=== PATIENT | male | born 1960 | race Caucasian/White ===

== ENCOUNTER 2020-08-20 09:53 | Emergency (ER) | payer OTHER ==
--- NOTE | 2020-08-20 10:31 | ER ---
Nurse's Notes [facility] Name: Bi King Age: 60 yrs Sex: Male : 1960 Arrival Date: 08/20/2020 Time: 09:55 Bed 13 Private MD: Diagnosis: Foreign body in left ear Presentation: 08/20 10:05 Chief complaint: Patient states: left ear felt clogged then started having a lot of iw pain for 3 weeks, went to PCP and had abx prescribed , no improvement. Coronavirus screen: At this time, the client does not indicate any symptoms associated with coronavirus-19. Ebola Screen: Patient negative for fever greater than or equal to 101.5 degrees Fahrenheit, and additional compatible Ebola Virus Disease symptoms Patient denies exposure to infectious person. Patient denies travel to an Ebola-affected area in the 21 days before illness onset. No symptoms or risks identified at this time. Initial Sepsis Screen: Does the patient meet any 2 criteria? No. Patient's initial sepsis screen is negative. Does the patient have a suspected source of infection? No. Patient's initial sepsis screen is negative. Risk Assessment: Do you want to hurt yourself or someone else? Patient reports no desire to harm self or others. Onset of symptoms was August 07, 2020. 10:05 Method Of Arrival: Ambulatory iw 10:05 Acuity: TANJA 4 iw Historical: - Allergies: 10:07 No Known Allergies; iw - Home Meds: 10:07 None [Active]; iw - PMHx: 10:07 None; iw - PSHx: 10:07 None; iw - Immunization history:: Adult Immunizations up to date. - Social history:: Smoking status: Patient denies any tobacco usage or history of. Screenin:12 Abuse screen: Denies threats or abuse. Denies injuries from another. Nutritional iw screening: No deficits noted. Tuberculosis screening: No symptoms or risk factors identified. Fall Risk None identified. Assessment: 10:12 General: Appears in no apparent distress. Behavior is calm, cooperative. Pain: iw Complains of pain in left ear. Neuro: Level of Consciousness is awake, alert, obeys commands, Oriented to person, place, time, situation, Moves all extremities. Full function. Cardiovascular: Patient's skin is warm and dry. Respiratory: Respiratory effort is even, unlabored, Respiratory pattern is regular, symmetrical. EENT: Reports pain in left ear. Derm: Skin is intact, is healthy with good turgor. Vital Signs: 10:05 BP 118 / 77; Pulse 52; Resp 16; Temp 98.7; Pulse Ox 98% on R/A; Weight 99.79 kg; Height iw 5 ft. 8 in. (172.72 cm); Pain 5/10; 10:05 Body Mass Index 33.45 (99.79 kg, 172.72 cm) iw ED Course: 09:55 Patient arrived in ED. ag5 10:07 Triage completed. iw 10:07 Arm band placed on. iw 10:08 Coreen Gonzalez, TAMIKA is Primary Nurse. iw 10:09 Allan Do PA is PHCP. jr8 10:09 Parag Isaac MD is Attending Physician. jr8 10:31 Monserrat Ceballos MD is Referral Physician. jr8 Administered Medications: No medications were administered Outcome: :31 Discharge ordered by . jr8 10:36 Patient left the ED. iw Signatures: Coreen Gonzalez, TAMIKA RN iw Allan Do PA PA jr8 Orly Baugh ag5
--- NOTE | 2020-08-20 10:32 | EDPHYS ---
Physician Documentation [facility] Name: Bi King Age: 60 yrs Sex: Male : 1960 Arrival Date: 08/20/2020 Time: 09:55 Bed 13 Private MD: ED Physician Parag Isaac HPI: 08/20 10:26 This 60 yrs old Male presents to ER via Ambulatory with complaints of Ear jr8 Pain. 10:26 The patient presents with pain, that is acute. The complaints affect the left ear. jr8 Onset: The symptoms/episode began/occurred acutely. Modifying factors: The symptoms are alleviated by nothing, the symptoms are aggravated by nothing. Associated signs and symptoms: The patient has no apparent associated signs or symptoms. Severity of symptoms: At their worst the symptoms were moderate in the emergency department the symptoms are unchanged. The patient has not experienced similar symptoms in the past. The patient has not recently seen a physician. Patient stated that he has left ear pain that is not subsiding. Had been on Abx for it not long ago . Historical: - Allergies: 10: No Known Allergies; iw - Home Meds: : None [Active]; iw - PMHx: 10: None; iw - PSHx: 10: None; iw - Immunization history:: Adult Immunizations up to date. - Social history:: Smoking status: Patient denies any tobacco usage or history of. ROS: 10:26 Eyes: Negative for injury, pain, redness, and discharge, Neck: Negative for injury, jr8 pain, and swelling, Cardiovascular: Negative for chest pain, palpitations, and edema, Respiratory: Negative for shortness of breath, cough, wheezing, and pleuritic chest pain, Abdomen/GI: Negative for abdominal pain, nausea, vomiting, diarrhea, and constipation, Back: Negative for injury and pain, MS/Extremity: Negative for injury and deformity, Skin: Negative for injury, rash, and discoloration, Neuro: Negative for headache, weakness, numbness, tingling, and seizure. 10:26 ENT: Positive for ear pain. Exam: 10:26 Constitutional: This is a well developed, well nourished patient who is awake, alert, jr8 and in no acute distress. Eyes: Pupils equal round and reactive to light, extra-ocular motions intact. Lids and lashes normal. Conjunctiva and sclera are non-icteric and not injected. Cornea within normal limits. Periorbital areas with no swelling, redness, or edema. Neck: Trachea midline, no thyromegaly or masses palpated, and no cervical lymphadenopathy. Supple, full range of motion without nuchal rigidity, or vertebral point tenderness. No Meningismus. Cardiovascular: Regular rate and rhythm with a normal S1 and S2. No gallops, murmurs, or rubs. Normal PMI, no JVD. No pulse deficits. Respiratory: Lungs have equal breath sounds bilaterally, clear to auscultation and percussion. No rales, rhonchi or wheezes noted. No increased work of breathing, no retractions or nasal flaring. Skin: Warm, dry with normal turgor. Normal color with no rashes, no lesions, and no evidence of cellulitis. MS/ Extremity: Pulses equal, no cyanosis. Neurovascular intact. Full, normal range of motion. Neuro: Awake and alert, GCS 15, oriented to person, place, time, and situation. Cranial nerves II-XII grossly intact. Motor strength 5/5 in all extremities. Sensory grossly intact. Cerebellar exam normal. Normal gait. 10:26 ENT: Exam is negative for nasal discharge, sinus tenderness, enlarged tonsils, pharyngitis, exudate, External ear(s): are unremarkable, Ear canal(s): foreign body, eraser , in the left external ear canal, TM's: not visable, because of a foreign body, Examination of the other ear shows no obvious abnormality. Vital Signs: 10:05 BP 118 / 77; Pulse 52; Resp 16; Temp 98.7; Pulse Ox 98% on R/A; Weight 99.79 kg; Height iw 5 ft. 8 in. (172.72 cm); Pain 5/10; 10:05 Body Mass Index 33.45 (99.79 kg, 172.72 cm) iw Procedures: 10:26 Foreign Body Removal: eraser , from the left ear canal, by using a curette, The patient jr8 tolerated the removal well. MDM: 10:10 Patient medically screened. jr8 10:26 Data reviewed: vital signs, nurses notes, and as a result, I will discharge patient. jr8 Data interpreted: Pulse oximetry: on room air is 98 %. Interpretation: normal. Counseling: I had a detailed discussion with the patient and/or guardian regarding: the historical points, exam findings, and any diagnostic results supporting the discharge/admit diagnosis, the need for outpatient follow up, an ENT specialist, to return to the emergency department if symptoms worsen or persist or if there are any questions or concerns that arise at home. Administered Medications: No medications were administered Disposition: 13:38 Co-signature as Attending Physician, Parag Isaac MD. rn Disposition: 08/20/20 10:31 Discharged to Home. Impression: Foreign body in left ear. - Condition is Stable. - Discharge Instructions: Ear Foreign Body. - Medication Reconciliation Form, Thank You Letter, Antibiotic Education, Prescription Opioid Use form. - Follow up: Monserrat Ceballos MD; When: As needed; Reason: Recheck today's complaints, Continuance of care, Re-evaluation by your physician. - Problem is new. - Symptoms have improved. Signatures: Coreen Gonzalez RN RN iw Parag Isaac MD MD rn Roszak, Josh, PA PA jr8 Corrections: (The following items were deleted from the chart) 10:36 10:31 08/20/2020 10:31 Discharged to Home. Impression: Foreign body in left ear. iw Condition is Stable. Forms are Medication Reconciliation Form, Thank You Letter, Antibiotic Education, Prescription Opioid Use. Follow up: Monserrat Ceballos; When: As needed; Reason: Recheck today's complaints, Continuance of care, Re-evaluation by your physician. Problem is new. Symptoms have improved. jr8
[2020-08-20 10:45] VITALS: BP 118/77; TEMP 98.7; O2SAT 98
== END 2020-08-20 10:36 | disposition home or self-care (01) ==
LOC: ER 09:53
PROC: 09C4XZZ Extirpation of Matter from Left External Auditory Canal, External Approach (ICD-10-PCS; principal; 2020-08-20)
DX: T16.2XXA Foreign body in left ear, initial encounter (principal)
CPT/HCPCS: 99281

== ENCOUNTER 2025-08-10 16:45 | Emergency (ER) | payer BC, OTHER ==
[2025-08-10] MEDS ORDERED: MORPHINE 4 MG/ML SYR ONE (16:59)
[2025-08-10] MEDS ORDERED: ONDANSETRON 4 MG/2 ML VIAL ONE (16:59)
--- NOTE | 2025-08-10 18:21 | RAD REPORT ---
EXAM: CT brain without contrast HISTORY: Pain;Trauma COMPARISON: 06/01/2013 TECHNIQUE: Multiple contiguous axial images were obtained and a CT of the brain without contrast. Sag ittal and coronal reformats were performed. FINDINGS: No evidence of hydrocephalus, intracranial hemorrhage, or extra-axial fluid collection. The brain is normal in morphology. The calvarium is intact. The visualized paranasal sinuses and mastoid air cells are essentially clear . IMPRESSION: No evidence of acute intracranial abnormality. EXAM: CT of the cervical spine without contrast HISTORY: Pain;Trauma COMPARISON: None TECHNIQUE: Multiple contiguous axial images were obtained in a CT of the cervical spine without contr ast. Sagittal and coronal reformats were performed. FINDINGS: The vertebral bodies demonstrate normal height and alignment. No evidence of acute fracture or subluxation.. Mild degenerative changes are present. No prevertebral soft tissue swelling is seen. The posterior facets are well aligned. Normal alignment of the skull base with the cervical spine is seen. The lung apices are unremarkable. IMPRESSION: No evidence of acute osseous abnormality of the cervical spine.
--- NOTE | 2025-08-10 18:23 | RAD REPORT ---
EXAM: Thoracic Spine W/o Cont HISTORY: [facility] MAIN Pain;Trauma Bed Name: 5 COMPARISON: None TECHNIQUE: Multiple contiguous axial images were obtained in a CT of the thoracic spine without contr ast. Sagittal and coronal reformats were performed. One or more of the following dose reduction techniques were used: Automated exposure control, adjustment of the mA and kV according to patient si ze, and iterative reconstruction. Unless otherwise specified, incidental findings do not require dedicated imaging follow-up. FINDINGS: The vertebral bodies and intervertebral discs demonstrate normal height and alignment witho ut fracture or subluxation. . No significant degenerative changes are present. The prevertebral and paraspinal soft tissues are unremarkable. The included portions of the lungs and mediastinum are unremarkable. IMPRESSION: No evidence of acute osseous abnormality of the thoracic spine.
--- NOTE | 2025-08-10 18:27 | EDPHYS ---
Physician Documentation [facility] Name: Bi King Age: 65 yrs Sex: Male : 1960 Arrival Date: 08/10/2025 Time: 16:45 Bed 5 Private MD: ED Physician Hernando Foy HPI: 08/10 17:21 This 65 yrs old Male presents to ER via EMS with complaints of Fall Injury. dr5 17:21 Details of fall: The patient fell from a height, from a ladder, approximately [address]5 Details of fall: The patient fell. Details of fall: The patient fell from a height, from a ladder, approximately 3 feet. Onset: The symptoms/episode began/occurred acutely. Patient is a 65-year-old male with no past medical history, not on blood thinners, coming in with fall off of a ladder approximately 3 feet. Patient reports that he fell off the back of it hitting the back of his head and then hitting the middle of his lower back. Patient denies loss of consciousness, dizziness, nausea, vomiting. Patient reports pain is worse in middle of back. Patient denies bowel, bladder incontinence, perirectal numbness, bilateral lower leg numbness or tingling. Patient was administered 2000 mg of Tylenol IV prior to arrival by EMS.. Historical: - Allergies: 17:15 No Known Allergies; kj2 - Home Meds: 17:22 None [Active]; dr5 - PMHx: 17:22 None; dr5 - Immunization history: Last tetanus immunization: unknown. - Infectious Disease History:: Denies. - Social history:: Smoking status: unknown. ROS: 17:22 Constitutional: as per hpi dr5 Exam: 17:22 Constitutional: This is a well developed, well nourished patient who is awake, alert, dr5 and in no acute distress. Head/Face: Normocephalic, atraumatic. Eyes: Pupils equal round and reactive to light, extra-ocular motions intact. Lids and lashes normal. Conjunctiva and sclera are non-icteric and not injected. Cornea within normal limits. Periorbital areas with no swelling, redness, or edema. ENT: Nares patent. No nasal discharge, no septal abnormalities noted. Tympanic membranes are normal and external auditory canals are clear. Oropharynx with no redness, swelling, or masses, exudates, or evidence of obstruction, uvula midline. Mucous membranes moist. Neck: Trachea midline, no thyromegaly or masses palpated, and no cervical lymphadenopathy. Supple, full range of motion without nuchal rigidity, or vertebral point tenderness. No Meningismus. Chest/axilla: Normal chest wall appearance and motion. Nontender with no deformity. No lesions are appreciated. Cardiovascular: Regular rate and rhythm with a normal S1 and S2. Normal PMI, no JVD. No pulse deficits. Respiratory: Lungs have equal breath sounds bilaterally, clear to auscultation. No rales, rhonchi or wheezes noted. No increased work of breathing, no retractions or nasal flaring. Abdomen/GI: Soft, non-tender, non-distended Back: No spinal tenderness. No costovertebral tenderness. Full range of motion. Skin: Warm, dry with normal turgor. Normal color with no rashes, no lesions, and no evidence of cellulitis. Contusion noted to mid of back of head with small abrasion. No active bleeding at this time. MS/ Extremity: Pulses equal, no cyanosis. Neurovascular intact. Full, normal range of motion. Neuro: Awake and alert, GCS 15, oriented to person, place, time, and situation. Cranial nerves II-XII grossly intact. Motor strength 5/5 in all extremities. Sensory grossly intact. Cerebellar exam normal. Normal gait. Vital Signs: 16:56 BP 157 / 92; Pulse 57; Resp 20; Temp 97.8; Pulse Ox 95% on R/A; Weight 110.22 kg; kj2 Height 5 ft. 8 in. ; 18:05 BP 120 / 80; Pulse 58; Resp 20; Temp 97.9(O); Pulse Ox 98% ; kj2 16:56 Body Mass Index 36.95 (110.22 kg, 172.72 cm) kj2 Carter Coma Score: 16:56 Eye Response: spontaneous(4). Motor Response: obeys commands(6). Verbal Response: kj2 oriented(5). Total: 15. Trauma Score (Adult): 16:56 Eye Response: spontaneous(1); Verbal Response: oriented(1); Motor Response: obeys kj2 commands(2); Systolic BP: > 89 mm Hg(4); Respiratory Rate: 10 to 29 per min(4); Carter Score: 15; Trauma Score: 12 MDM: 16:58 Medical Screening Exam initiated dr5 19:36 Differential diagnosis: abrasion, closed head injury, contusion, fracture, sprain, dr5 strain. Data reviewed: vital signs, nurses notes, radiologic studies, CT scan. Consideration of Admission/Observation Escalation of care including admission/observation considered. Escalation considered if patient is having an intracranial hemorrhage. I considered the following discharge prescriptions or medication management in the emergency department I discussed and recommended Over The Counter medications, Medications were administered in the Emergency Department. See MAR. Independent interpretation of the following test(s) in the Emergency Department CT Scan: My interpretation is Independent interpretation of CT scan does not reveal intracranial hemorrhage. Historians other than the Patient: Parent: . Care significantly affected by the following Social Determinants of Health: Poor access to healthcare and/or lack of insurance, Poor access to transportation, Problems related to employment. Counseling: I had a detailed discussion with the patient and/or guardian regarding the historical points, exam findings, and any diagnostic results supporting the discharge/admit diagnosis, the presence of at least one elevated blood pressure reading (>120/80) during this emergency department visit, radiology results, the need for outpatient follow up, for definitive care, a family practitioner, to return to the emergency department if symptoms worsen or persist or if there are any questions or concerns that arise at home. Medication response: Response to treatment: the patient's symptoms have resolved after treatment, the patient's condition has returned to base line, the patient is now symptom free. Special discussion: Based on the patient's history, exam and DX evaluation, there is no indication for emergent intervention or inpatient TX. It is understood by the patient/guardian that if the SXs persist or worsen they need to return immediately for re-evaluation. I discussed with the patient/guardian in detail that at this point there is no indication for admission to the hospital. It is understood, however, that if the symptoms persist or worsen the patient needs to return immediately for re-evaluation. Based on the history and exam findings, there is no indication for further emergent testing or inpatient evaluation. I discussed with the patient/guardian the need to see the primary care provider for further evaluation of the symptoms. ED course: Pertinent results as Workmen's Comp. will likely need results and gave to patient. No intracranial hemorrhage noted no cervical fracture or thoracic fracture noted. Patient reports he is much better. All questions answered. Strict ER precautions given.. 08/10 16:57 Order name: CT Head C Spine; Complete Time: 18:23 dr5 08/10 16:57 Order name: CT Thoracic Spine Wo Cont; Complete Time: 18:24 dr5 Administered Medications: 17:12 Drug: morphine IVP or IV 4 mg IVP once over 4 mins Route: IVP; Infused Over: 4 mins; kj2 Site: right antecubital; 18:24 Follow up: Response: No adverse reaction kj2 17:12 Drug: Ondansetron IVP 4 mg IVP once; over 2 minutes Route: IVP; Site: right antecubital;kj2 18:24 Follow up: Response: No adverse reaction kj2 Disposition Summary: 08/10/25 18:26 Discharge Ordered Notes: Location: Home dr5 Condition: Stable dr5 Diagnosis - Fall on and from ladder, initial encounter dr5 - Contusion of other part of head, initial encounter dr5 Followup: dr5 - With: Emergency Department - When: As needed - Reason: Worsening of condition Followup: dr5 - With: Private Physician - When: 1 - 2 days - Reason: Recheck today's complaints, Continuance of care, Re-evaluation by your physician Discharge Instructions: - Discharge Summary Sheet dr5 - Hematoma dr5 - Preventing Work-Related Injuries and Illnesses dr5 Forms: - Work release form dr5 - Medication Reconciliation Form dr5 - Patient Portal Instructions dr5 - Leadership Thank You Letter dr5 Prescriptions: - Ibuprofen 800 mg Oral Tablet - take 1 tablet ORAL route every 12 hours As needed take with food; 20 tablet; dr5 Refills: 0, Product Selection Permitted - Cyclobenzaprine 10 mg Oral Tablet - take 1 tablet ORAL route every 8 hours As needed; 30 tablet; Refills: 0, dr5 Product Selection Permitted Signatures: Dispatcher [employer] EDMS Leena Horta RN RN kj2 Benedicto Viera FNP-C [employer]-5 Corrections: (The following items were deleted from the chart) 16:57 16:57 Head C Spine MPR Wo Con+CT.RAD.BRZ ordered. EDMS EDMS 16:58 16:57 Thoracic Spine WO Cont+CT.RAD.BRZ ordered. EDMS EDMS
--- NOTE | 2025-08-10 18:27 | ER ---
Nurse's Notes [facility] Name: Bi King Age: 65 yrs Sex: Male : 1960 Arrival Date: 08/10/2025 Time: 16:45 Bed 5 Private MD: Diagnosis: Fall on and from ladder, initial encounter;Contusion of other part of head, initial encounter Presentation: 08/10 16:53 Chief complaint: EMS states: FELL BACKWARDS 3 FEET FROM A LADDER AT WORK. Care prior to kj2 arrival: None. Mechanism of Injury: Fall approximately 3 feet. Trauma event details: Injury occurred: August 10, 2025. 16:53 Acuity: TANJA 3 kj2 16:53 Method Of Arrival: EMS: [facility] kj2 16:55 Coronavirus screen: Client denies travel out of the [place] in the last 14 days. Ebola kj2 Screen: No symptoms or risks identified at this time. Initial Sepsis Screen: Does the patient meet any 2 criteria? No. Patient's initial sepsis screen is negative. Does the patient have a suspected source of infection? No. Patient's initial sepsis screen is negative. Risk Assessment: Do you want to hurt yourself or someone else? Patient reports no desire to harm self or others. 17:16 Onset of symptoms was August 10, 2025. kj2 Historical: - Allergies: 17:15 No Known Allergies; kj2 - Home Meds: 17:22 None [Active]; dr5 - PMHx: 17:22 None; dr5 - Immunization history: Last tetanus immunization: unknown. - Infectious Disease History:: Denies. - Social history:: Smoking status: unknown. Screenin:55 [facility] ED Fall Risk Assessment (Adult) History of falling in the last 3 months, kj2 including since admission Yes- single mechanical fall (1 pt) Confusion or Disorientation No (0 pts) Intoxicated or Sedated No (0 pts) Impaired Gait No (0 pts) Mobility Assist Device Used No (0 pt) Altered Elimination No (0 pt) Score/Fall Risk Level 0 - 2 = Low Risk Maintained a safe environment, Hourly rounding (assess needs \T\ fall precautionary measures) done. Abuse screen: Denies threats or abuse. Denies injuries from another. Nutritional screening: No deficits noted. Tuberculosis screening: No symptoms or risk factors identified. Primary Survey: 16:55 NO uncontrolled hemorrhage observed. Breathing/Chest: Spontaneous respiratory effort, kj2 equal unlabored respirations, breath sounds clear bilaterally, regular pattern, symmetrical chest rise and fall. Respiratory effort: spontaneous, unlabored. Circulation: No external hemorrhage present. Regular and strong central pulse, skin warm/dry/normal color. Disability Pupils are equal, round, reactive to light and accommodation. Client is alert. Client responds to verbal stimuli. Exposure/Environment: All clothing and personal items were removed. Forensic evidence collection is not deemed to be indicated at this time. Items placed in patient belonging bag. A warming method has been applied: none needed. 17:16 Reassessment Breathing: Spontaneous respiratory effort, equal unlabored respirations, kj2 breath sounds clear bilaterally, regular pattern with symmetrical chest rise and fall. Circulation: No external hemorrhage noted. Regular and strong central pulse, skin warm/dry/normal color. Disability: Pupils Pupils are equal, round, reactive to light and accomodation. Alert. Assessment: 16:55 General: Appears in no apparent distress. Behavior is cooperative. Pain: Complains of kj2 pain in HEAD Pain currently is 4 out of 10 on a pain scale. Neuro: Level of Consciousness is awake, alert, obeys commands, Oriented to person, place, time, situation. Cardiovascular: Patient's skin is warm and dry. Respiratory: Airway is patent Respiratory effort is even, unlabored. GI: No signs and/or symptoms were reported involving the gastrointestinal system. : No signs and/or symptoms were reported regarding the genitourinary system. 18:00 Reassessment: Patient appears in no apparent distress at this time. Patient and/or kj2 family updated on plan of care and expected duration. Pain level reassessed. Patient is alert, oriented x 3, equal unlabored respirations, skin warm/dry/pink. Vital Signs: 16:56 BP 157 / 92; Pulse 57; Resp 20; Temp 97.8; Pulse Ox 95% on R/A; Weight 110.22 kg; kj2 Height 5 ft. 8 in. ; 18:05 BP 120 / 80; Pulse 58; Resp 20; Temp 97.9(O); Pulse Ox 98% ; kj2 16:56 Body Mass Index 36.95 (110.22 kg, 172.72 cm) kj2 [facility] Coma Score: 16:56 Eye Response: spontaneous(4). Motor Response: obeys commands(6). Verbal Response: kj2 oriented(5). Total: 15. Trauma Score (Adult): 16:56 Eye Response: spontaneous(1); Verbal Response: oriented(1); Motor Response: obeys kj2 commands(2); Systolic BP: > 89 mm Hg(4); Respiratory Rate: 10 to 29 per min(4); [facility] Score: 15; Trauma Score: 12 ED Course: 16:53 Patient arrived in ED. kj2 16:53 Leena Horta, RN is Primary Nurse. kj2 16:55 Triage completed. kj2 16:56 Benedicto Viera FNP-C is [facility]. dr5 16:56 Hernando Foy MD is Attending Physician. dr5 16:58 Patient has correct armband on for positive identification. Bed in low position. Call kj2 light in reach. Adult w/ patient. 16:58 Maintain EMS IV. Dressing intact. Good blood return noted. Site clean \T\ dry. Gauge \T\ kj 2 site: 20G RIGHT ac. Flushed with 10 mL NS. 17:00 Provided Education on: call light. kj2 17:00 Patient maintains SpO2 saturation greater than 95% on room air. kj2 17:00 Thermoregulation: none needed. kj2 17:05 Arm band placed on Patient placed in the treatment room. kj2 17:29 CT Head C Spine In Process Unspecified. EDMS 17:29 CT Thoracic Spine Wo Cont In Process Unspecified. EDMS 18:32 No provider procedures requiring assistance completed. kj2 18:35 IV discontinued, intact, bleeding controlled, No redness/swelling at site. Pressure kj2 dressing applied. Administered Medications: 17:12 Drug: morphine IVP or IV 4 mg IVP once over 4 mins Route: IVP; Infused Over: 4 mins; kj2 Site: right antecubital; 18:24 Follow up: Response: No adverse reaction kj2 17:12 Drug: Ondansetron IVP 4 mg IVP once; over 2 minutes Route: IVP; Site: right antecubital;kj2 18:24 Follow up: Response: No adverse reaction kj2 Medication: 18:00 VIS not applicable for this client. kj2 Intake: 18:34 PO: 0ml; Total: 0ml. kj2 Outcome: 18:26 Discharge ordered by . dr5 18:34 Patient's length of stay was not longer than 2 hours. kj2 18:35 Discharged to home ambulatory, with family, kj2 18:35 Condition: stable 18:35 Discharge instructions given to patient, Instructed on discharge instructions, follow up and referral plans. Demonstrated understanding of instructions, follow-up care, 18:53 Patient left the ED. kj2 Signatures: Dispatcher [employer] Leena Joy RN RN kj2 Benedicto Viera, [employer]-C [employer]-Cdr5
[2025-08-10 19:18] VITALS: BP 120/80; TEMP 97.9; O2SAT 98
== END 2025-08-10 18:53 | disposition home or self-care (01) ==
LOC: ER 16:45
DX: S00.83XA Contusion of other part of head, initial encounter (principal); W11.XXXA Fall on and from ladder, initial encounter
CPT/HCPCS: 70450; 72125; 72128; 96375; 96374; 99285; J2405